=== PATIENT | female | born 2000 | race Two or more races ===

== ENCOUNTER 2023-05-30 15:36 | Emergency (ER) | payer OTHER ==
[~2023-05-30] VITALS: Ht 162.6 cm; Wt 49.9 kg
[2023-05-30] MEDS ORDERED: ACETAMINOPHEN 500 MG GEL..CAP PO ONE (18:30)
[2023-05-30] MEDS ORDERED: GUAIFENESIN/DEXTROMETHORPHAN 100 MG/5 ML ML PO ONE (18:30)
[2023-05-30 19:33] LABS: HEMATOCRIT 38.1 % (36.0-45.00); MEAN CELL VOLUME 83.2 fL (80.00-100.00); MEAN CORPUSCULAR HEMOGLOBIN 28.5 pg (27.00-32.0); MEAN CORPUSCULAR HGB CONC 34.3 g/dl (32.0-36.0); PLATELET COUNT 215 K/uL (150-450); RED BLOOD COUNT 4.57 M/uL (4.00-6.00); RED CELL DISTRIBUTION WIDTH 12.7 % (11.5-14.5)
[2023-05-30] MEDS ORDERED: TUSSIN DM SYRU118 ML PO (20:51)
[2023-05-30] MEDS ORDERED: OSEL75CA PO (20:51)
== END 2023-05-30 22:30 | disposition home or self-care (01) ==
LOC: ER 15:36
PROVIDERS: Nurse Practitioner Family
DX: J10.1 Influenza due to other identified influenza virus with other respiratory manifestations (principal); Z20.822 Contact with and (suspected) exposure to COVID-19

== ENCOUNTER 2023-05-31 23:53 | Emergency (ER) | payer OTHER ==
[~2023-05-31] VITALS: Ht 162.6 cm; Wt 53.5 kg
[~2023-05-31 23:53] MED LIST: OSEL75CA PO; TUSSIN DM SYRU118 ML PO
[2023-06-01] MEDS ORDERED: FAMOTIDINE/PF 20 MG/2 ML VIAL IV STA (01:13)
[2023-06-01] MEDS ORDERED: DEXAMETHASONE SODIUM PHOSPHATE 4 MG/ML VIAL IM STA (01:13)
[2023-06-01] MEDS ORDERED: 0.9 % SODIUM CHLORIDE 1,000 ML IV STA (01:13)
[2023-06-01] MEDS ORDERED: ONDANSETRON HCL 2 MG/ML VIAL IV STA (01:13)
[2023-06-01] MEDS ORDERED: ACETAMINOPHEN 500 MG GEL..CAP PO STA (01:14)
[2023-06-01 02:11] LABS: HEMATOCRIT 38.2 % (36.0-45.00); HEMOGLOBIN 13.3 g/dL (12.0-15.00); MEAN CELL VOLUME 83.2 fL (80.00-100.00); MEAN CORPUSCULAR HEMOGLOBIN 28.9 pg (27.00-32.0); MEAN CORPUSCULAR HGB CONC 34.8 g/dl (32.0-36.0); PLATELET COUNT 227 K/uL (150-450); RED BLOOD COUNT 4.59 M/uL (4.00-6.00); RED CELL DISTRIBUTION WIDTH 13.1 % (11.5-14.5)
[2023-06-01 02:27] LABS: ALBUMIN 3.9 gm/dL (3.4-5.0); BILIRUBIN TOTAL 0.31 mg/dL (0.3-1.2); CREATININE SERUM 0.65 mg/dL (0.55-1.02); GFR 115.06; GLOBULINA 4.1 G/DL (2.4-3.5); POTASSIUM 3.25 mEq/L (3.5-5.1)
[2023-06-01] MEDS ORDERED: INTESTINEX680 M1 PO (03:09)
[2023-06-01] MEDS ORDERED: DICY20TA PO (03:09)
[2023-06-01] MEDS ORDERED: PEPCID20 MG PO (03:09)
== END 2023-06-01 04:10 | disposition home or self-care (01) ==
LOC: ER 23:54
PROVIDERS: General Practice
DX: B34.9 Viral infection, unspecified (principal)

== ENCOUNTER 2023-12-02 06:10 | Emergency (ER) | payer OTHER ==
[~2023-12-02] VITALS: Ht 162.6 cm; Wt 54.0 kg
[~2023-12-02 06:10] MED LIST changes: +DICY20TA PO; +INTESTINEX680 M1 PO; +PEPCID20 MG PO
[2023-12-02] MEDS ORDERED: GENTAMICIN SULFATE 0.15 MG/DR DROPS 5ML OP STA (08:04)
[2023-12-02] MEDS ORDERED: GENTAMICIN SULFATE 0.15 MG/DR DROPS 5ML OP ONE (08:19)
== END 2023-12-02 08:45 | disposition home or self-care (01) ==
LOC: ER 06:12
DX: H10.89 Other conjunctivitis (principal)

== ENCOUNTER 2024-03-18 16:46 | Emergency (ER) | payer OTHER ==
[~2024-03-18] VITALS: Ht 162.6 cm; Wt 53.5 kg
[2024-03-18 19:20] LABS: HEMATOCRIT 39.1 % (36.0-45.00); HEMOGLOBIN 13.4 g/dL (12.0-15.00); MEAN CELL VOLUME 84.6 fL (80.00-100.00); MEAN CORPUSCULAR HGB CONC 34.3 g/dl (32.0-36.0); PLATELET COUNT 208 K/uL (150-450); RED BLOOD COUNT 4.62 M/uL (4.00-6.00); RED CELL DISTRIBUTION WIDTH 13.2 % (11.5-14.5)
[2024-03-18 19:42] LABS: ALBUMIN 4.3 gm/dL (3.4-5.0); BILIRUBIN TOTAL 0.35 mg/dL (0.3-1.2); CALCIUM 9.7 mg/dL (8.5-10.1); CREATININE SERUM 0.83 mg/dL (0.55-1.02); GFR 86.78; GLOBULINA 4.8 G/DL (2.4-3.5); POTASSIUM 3.64 mEq/L (3.5-5.1); TOTAL PROTEIN 9.1 gm/dL (6.4-8.2)
== END 2024-03-18 22:52 | disposition home or self-care (01) ==
LOC: ER 16:48
PROVIDERS: Preventive Medicine Public Health & General Preventive Medicine
DX: J06.9 Acute upper respiratory infection, unspecified (principal); J00 Acute nasopharyngitis [common cold]; Z20.822 Contact with and (suspected) exposure to COVID-19